=== PATIENT | female | born 1970 | race Caucasian/White ===

== ENCOUNTER 2016-11-27 15:44 | Emergency (ER) | payer OTHER ==
[2016-11-27] MEDS ORDERED: NORCO 5/325 MG PO ONE (15:57)
--- NOTE | 2016-11-27 16:00 | ERPHSYRPT ---
- History of Present Illness Time Seen by Provider: 11/27/16 15:49 Source: patient Patient Subjective Stated Complaint: rt hand pain Triage Nursing Assessment: punched a wall with rt hand last night. dorsal rt hand swelling and anterior bruising noted. cap refill< 3 sec. radial pulse present Physician History: CC: right hand injury Hx: She got mad and punched something with right hand. Pain in right hand. Hit a wall or a door. No other injuries. Today. Pain severe. Hurts to move. Occurred: just prior to arrival Allergies/Adverse Reactions: tramadol Allergy (Verified 11/27/16 15:56) Home Medications: Duloxetine HCl 30 mg [Cymbalta 30 MG Capsule] 30 mg PO BID 11/27/16 [ History] Hx Tetanus, Diphtheria Vaccination/Date Given: Yes Hx Influenza Vaccination/Date Given: No Hx Pneumococcal Vaccination/Date Given: No Immunizations Up to Date: Yes - Review of Systems Constitutional: No Symptoms Musculoskeletal: Injury (right hand), No Back Pain, No Neck Pain Neurological: No Focal Weakness, No Parasthesia - Past Medical History Pertinent Past Medical History: Yes Neurological History: Other Cardiac History: No Pertinent History Respiratory History: No Pertinent History Endocrine Medical History: No Pertinent History Musculoskeletal History: No Pertinent History Psycho-Social History: Anxiety, Depression Other Medical History: Anxiety. 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' - Past Surgical History Past Surgical History: Yes Gastrointestinal: Appendectomy, Cholecystectomy Female Surgical History: Hysterectomy Other Surgical History: foot surgery x2 - Social History Smoking Status: Smoker, status unknown Exposure to second hand smoke: Yes Drug Use: none Patient Lives Alone: No - Nursing Vital Signs Nursing Vital Signs: Initial Vital Signs Temperature 98.2 F Temperature Source Oral Pulse Rate 82 Respiratory Rate 18 Blood Pressure [Left Arm] 105/75 Pain Intensity 8 - Physical Exam General Appearance: alert Cardiovascular/Respiratory Exam: regular rate/rhythm Hand Exam: bone tenderness, limited ROM, swelling, No ecchymosis, No laceration Neuro/Tendon Exam: normal sensation, normal motor functions Mental Status Exam: alert, oriented x 3, cooperative Skin Exam: warm, dry, other (good cap refill) - Course Nursing assessment & vital signs reviewed: Yes - Radiology Exams right hand X-ray Interpretation: Reviewed by me, No Fracture Ordered Tests: Active Orders 24 hr Category Date Time Status Cold Application STAT Care 11/27/16 15:57 Active Splint STAT Care 11/27/16 16:29 Active HAND (MINIMUM 3 VIEWS) Stat Exams 11/27/16 15:57 Taken Medication Summary Discontinued Medications Generic Name Dose Route Start Last Admin Trade Name Mikey PRN Reason Stop Dose Admin Hydrocodone Bitart/Acetaminophen 1 tab 11/27/16 15:57 11/27/16 16:03 [place]wick 5/325 Mg PO 11/27/16 15:58 1 tab STAT ONE Administration Hydrocodone Bitart/Acetaminophen Confirm 11/27/16 16:03 [place] 5/325 Mg Administered 11/27/16 16:04 Dose 1 tab .ROUTE .STK-MED ONE - Progress Progress Note: 11/27/16 16:30 Prelim xray neg. Will apply splint. Advised follow up with Dr Carvalho. Counseled pt/family regarding: diagnosis, need for follow-up, rad results - Departure Time of Disposition: 16:31 Departure Disposition: Home Clinical Impression: Contusion of right hand Qualifiers: Encounter type: initial encounter Qualified Code(s): S60.221A - Contusion of right hand, initial encounter Condition: Stable Critical Care Time: No Referrals: ROMÁN CARVALHO MD [Primary Care Provider] - Instructions: Contusion Additional Instructions: SPRAINS/STRAINS/CONTUSIONS 1. Rest the affected area as much as possible for the next few days. 2. Apply ice to the affected area for 20-30 minutes at a time, several times a day. 3. If you receive an elastic wrap, wear it only while awake for comfort and support. Re-wrap the elastic wrap if it feels too tight or too loose. 4. If swelling is present, elevate the affected part above the level of the heart for at least 2 to 3 days. 5. Use splints, slings, or crutches as instructed. 6. Watch for severe swelling, coldness, numbness, and discoloration of the fingers and toes. See your family physician or return to the emergency department if any of these are noted. Splint. Follow up with Dr Carvalho in 2-3 days. Rx norco- no driving. Prescriptions: Hydrocodone Bit/Acetaminophen [Warwick 5-325 Tablet] 1 each PO Q6H PRN PRN #8 tablet PRN Reason: Pain
[2016-11-27] MEDS ORDERED: NORCO 5/325 MG ONE (16:03)
[2016-11-27 17:00] VITALS: BP 122/76; PULSE 88; O2SAT 98
--- NOTE | 2016-11-27 17:07 | XRAY ---
Indication: Pain following punching injury. Comparison: None 3 views of the right hand obtained. No bony, articular, or soft tissue abnormalities.
== END 2016-11-27 17:00 | disposition home or self-care (01) ==
LOC: ED 15:44
PROC: 2W3EX1Z Immobilization of Right Hand using Splint (ICD-10-PCS; principal; 2016-11-27)
DX: S60.221A Contusion of right hand, initial encounter (principal); W22.01XA Walked into wall, initial encounter
CPT/HCPCS: 29126; 73130; 99284; A9270-GY